=== PATIENT | male | born 1970 | race Hispanic/Latino ===

== ENCOUNTER 2016-08-15 06:22 | Emergency (ER) | payer MEDICAID ==
[2016-08-15 06:39] VITALS: TEMP 98.6; BMI 23.6
--- NOTE | 2016-08-15 07:30 | ED PDOC ---
Arrival/HPI - General Chief Complaint: Upper Extremity Problem/Injury Time Seen by Provider: 08/15/16 07:29 Historian: Patient - History of Present Illness Narrative History of Present Illness (Text): 08/15/16 07:30 A 46 year old male, who denies any past medical history, presents to the emergency department complaining of right hand pain since last night. Patient reports he was in an argument and punched a wall with his hand. Patient denies any fever, chills, nausea, vomiting, diarrhea, abdominal pain, chest pain, shortness of breath or any other complaints. PMD: None Time/Duration: Other (Last night) Symptom Course: Unchanged Quality: Other ("Pain") Context: Home Past Medical History - Provider Review Nursing Documentation Reviewed: Yes - Infectious Disease Hx of Infectious Diseases: None - Tetanus Immunization Tetanus Immunization: Unknown - Past Medical History Past Medical History: No Previous - Cardiac Hx Cardiac Disorders: No - Pulmonary Hx Respiratory Disorders: Yes Hx Asthma: Yes - Neurological Hx Neurological Disorder: No - HEENT Hx HEENT Disorder: No - Renal Hx Renal Disorder: No - Endocrine/Metabolic Hx Endocrine Disorders: No - Hematological/Oncological Hx Blood Disorders: No - Integumentary Hx Dermatological Disorder: No - Musculoskeletal/Rheumatological Hx Musculoskeletal Disorders: Yes Hx Fractures: Yes - Gastrointestinal Hx Gastrointestinal Disorders: No - Genitourinary/Gynecological Hx Genitourinary Disorders: No - Psychiatric Hx Psychophysiologic Disorder: Yes Hx Anxiety: Yes Hx Substance Use: Yes - Surgical History Hx Orthopedic Surgery: Yes (left femur) - Anesthesia Hx Anesthesia: Yes Hx Anesthesia Reactions: No Hx Malignant Hyperthermia: No - Suicidal Assessment Feels Threatened In Home Enviroment: No Family/Social History - Physician Review Nursing Documentation Reviewed: Yes Family/Social History: No Known Family HX Smoking Status: Former Smoker Hx Alcohol Use: No Hx Substance Use: Yes Substance used: Heroin Hx Substance Use Treatment: No Allergies/Home Meds Allergies/Adverse Reactions: Allergies No Known Allergies Allergy (Verified 10/13/15 21:15) Review of Systems - Physician Review All systems were reviewed & negative as marked: Yes - Review of Systems Constitutional: absent: Fevers, Night Sweats Respiratory: absent: SOB Cardiovascular: absent: Chest Pain Gastrointestinal: absent: Abdominal Pain, Diarrhea, Nausea, Vomiting Musculoskeletal: Other (Right hand pain) Physical Exam - Physical Exam Narrative Physical Exam (Text): Constitutional: No acute distress. Head: Normocephalic. Atraumatic. Eyes: PERRL. ENT: Moist mucous membranes. Neck: Supple. Cardiovascular: Regular rate. Chest: No tenderness. Respiratory: Clear to auscultation bilaterally. GI: Soft. Nontender. Nondistended. Back: No CVA tenderness. Musculoskeletal: Ecchymosis on palmar aspect of right palm. Edema to dorsal palmar aspect. Full ROM with pain. No snuff box tenderness. No swelling of extremities. Skin: No rash. Neurologic: Alert, no focal deficit. Vital Signs Reviewed: Yes Vital Signs Temp Pulse Resp BP Pulse Ox 08/15/16 06:38 98.6 F 96 H 19 125/86 97 Temperature: Afebrile Blood Pressure: Normal Pulse: Tachycardic Respiratory Rate: Normal Appearance: Positive for: Well-Appearing, Non-Toxic, Comfortable Pain Distress: None Mental Status: Positive for: Alert and Oriented X 3 Medical Decision Making ED Course and Treatment: 08/15/16 07:30 Impression: A 46 year old male with right hand pain, likely Boxer's Fracture, will confirm with XR. Plan: -- Right hand xray -- Toradol -- Reassess and disposition Progress Notes: XR shows fracture of 5th metacarpal as read by me. Ulnar gutter splint placed. Discharged home, follow up Ortho, return to ER for worsening pain, numbness, skin coldness or color change. - RAD Interpretation Radiology Orders: 08/15/16 07:32 HAND RIGHT 3 VIEWS [RAD] Stat - Medication Orders Current Medication Orders: Discontinued Medications Ketorolac Tromethamine (Toradol) 30 mg IM STAT STA Stop: 08/15/16 07:33 Last Admin: 08/15/16 07:40 Dose: 30 mg - Scribe Statement The provider has reviewed the documentation as recorded by the Samson Sharp Provider Scribe Attestation: All medical record entries made by the Scribe were at my direction and personally dictated by me. I have reviewed the chart and agree that the record accurately reflects my personal performance of the history, physical exam, medical decision making, and the department course for this patient. I have also personally directed, reviewed, and agree with the discharge instructions and disposition. Disposition/Present on Arrival - Present on Arrival Any Indicators Present on Arrival: No History of DVT/PE: No History of Uncontrolled Diabetes: No Urinary Catheter: No History of Decub. Ulcer: No History Surgical Site Infection Following: None - Disposition Have Diagnosis and Disposition been Completed?: Yes Diagnosis: Fracture, metacarpal Disposition: HOME/ ROUTINE Disposition Time: 08:49 Patient Plan: Discharge Condition: STABLE Discharge Instructions (ExitCare): Boxer Fracture (ED) Prescriptions: Ibuprofen [Motrin] 600 mg PO Q6 #25 tab Referrals: Orestes Lloyd DO [Staff Provider] - Follow up with primary
[2016-08-15 09:07] VITALS: BP 128/75; PULSE 86; RESP 17; O2SAT 98
--- NOTE | 2016-08-15 11:47 | RAD ---
PROCEDURE: Right Hand Radiographs. HISTORY: punched wall, hand pain COMPARISON: None. FINDINGS: BONES: There is a minimally angulated fracture of the neck of the 5th metacarpal JOINTS: Normal. No osteoarthritic changes. SOFT TISSUES: Normal. OTHER FINDINGS: None. IMPRESSION: There is a minimally angulated fracture of the neck of the 5th metacarpal
== END 2016-08-15 09:07 | disposition home or self-care (01) ==
LOC: ED 06:22
DX: S62.336A Displaced fracture of neck of fifth metacarpal bone, right hand, initial encounter for closed fracture (principal); W22.01XA Walked into wall, initial encounter; Y92.009 Unspecified place in unspecified non-institutional (private) residence as the place of occurrence of the external cause
CPT/HCPCS: 73130; 96372; 99284; J1885

== ENCOUNTER 2017-07-05 12:59 | Observation (INO) | payer OTHER, MEDICAID ==
[2017-07-05] MEDS: Albuterol-Ipratrop 3 mg / 0.5 (3 ml) UD IH SCH ×3 (13:20→13:48)
--- NOTE | 2017-07-05 13:26 | ED PDOC ---
Arrival/HPI - General Time Seen by Provider: 07/05/17 13:07 Historian: Patient - History of Present Illness Narrative History of Present Illness (Text): 07/05/17 13:23 47 year old male, whose past medical history includes asthma, presents to the emergency department complaining of asthma exacerbation. He reports using his nebulizer without relief. Denies chest pain. Time/Duration: Prior to Arrival Symptom Onset: Sudden Symptom Course: Unchanged Activities at Onset: Light Past Medical History - Provider Review Nursing Documentation Reviewed: Yes - Infectious Disease Hx of Infectious Diseases: None - Tetanus Immunization Tetanus Immunization: Unknown - Past Medical History Past Medical History: No Previous - Cardiac Hx Cardiac Disorders: No - Pulmonary Hx Respiratory Disorders: Yes Hx Asthma: Yes - Neurological Hx Neurological Disorder: No - HEENT Hx HEENT Disorder: No - Renal Hx Renal Disorder: No - Endocrine/Metabolic Hx Endocrine Disorders: No - Hematological/Oncological Hx Blood Disorders: No - Integumentary Hx Dermatological Disorder: No - Musculoskeletal/Rheumatological Hx Musculoskeletal Disorders: Yes Hx Fractures: Yes - Gastrointestinal Hx Gastrointestinal Disorders: No - Genitourinary/Gynecological Hx Genitourinary Disorders: No - Psychiatric Hx Psychophysiologic Disorder: Yes Hx Anxiety: Yes Hx Substance Use: Yes - Surgical History Hx Orthopedic Surgery: Yes (left femur) - Anesthesia Hx Anesthesia: Yes Hx Anesthesia Reactions: No Hx Malignant Hyperthermia: No - Suicidal Assessment Feels Threatened In Home Enviroment: No Family/Social History - Physician Review Nursing Documentation Reviewed: Yes Family/Social History: Unknown Family HX Smoking Status: Former Smoker Hx Alcohol Use: No Hx Substance Use: Yes Substance used: Heroin Hx Substance Use Treatment: No Allergies/Home Meds Allergies/Adverse Reactions: Allergies No Known Allergies Allergy (Verified 10/13/15 21:15) Review of Systems - Physician Review All systems were reviewed & negative as marked: Yes - Review of Systems Constitutional: Normal Eyes: Normal ENT: Normal Respiratory: SOB. absent: Cough Cardiovascular: Normal. absent: Chest Pain Gastrointestinal: Normal. absent: Abdominal Pain, Diarrhea, Nausea, Vomiting Genitourinary Male: Normal. absent: Dysuria, Frequency, Hematuria, Urinary Output Changes Musculoskeletal: Normal. absent: Back Pain, Neck Pain Skin: Normal. absent: Rash Neurological: Normal. absent: Headache, Dizziness Endocrine: Normal Hemo/Lymphatic: Normal Psychiatric: Normal Physical Exam Vital Signs Reviewed: Yes Vital Signs Temp Pulse Resp BP Pulse Ox 07/05/17 15:15 82 18 147/87 96 07/05/17 13:50 18 07/05/17 13:16 98.6 F 87 24 152/94 H 95 Temperature: Afebrile Blood Pressure: Hypertensive Pulse: Regular Respiratory Rate: Normal Appearance: Positive for: Well-Appearing, Non-Toxic, Comfortable Pain Distress: None Mental Status: Positive for: Alert and Oriented X 3 - Systems Exam Head: Present: Atraumatic, Normocephalic Pupils: Present: PERRL Extroacular Muscles: Present: EOMI Conjunctiva: Present: Normal Mouth: Present: Moist Mucous Membranes Neck: Present: Normal Range of Motion. No: Meningeal Signs, MIDLINE TENDERNESS , Paraspinal Tenderness Respiratory/Chest: Present: Wheezes. No: Respiratory Distress, Accessory Muscle Use Cardiovascular: Present: Regular Rate and Rhythm, Normal S1, S2. No: Murmurs Abdomen: No: Tenderness, Distention, Peritoneal Signs Back: Present: Normal Inspection. No: CVA Tenderness, Midline Tenderness, Paraspinal Tenderness Upper Extremity: Present: Normal Inspection. No: Cyanosis, Edema Lower Extremity: Present: Normal Inspection. No: Edema Neurological: Present: GCS=15, CN II-XII Intact, Speech Normal Skin: Present: Warm, Dry, Normal Color. No: Rashes Psychiatric: Present: Alert, Oriented x 3, Normal Insight, Normal Concentration Medical Decision Making ED Course and Treatment: 07/05/17 13:27 Impression: 47 year old male presents to the emergency department with wheezing Plan: -- Chest X-ray -- Duoneb -- Prednisone -- Reassess and disposition Progress Notes: 07/05/17 13:43 Chest X-ray reviewed, shows; LUNGS: No active pulmonary disease. PLEURA: No significant pleural effusion identified, no pneumothorax apparent. CARDIOVASCULAR: Normal. OSSEOUS STRUCTURES: No significant abnormalities. VISUALIZED UPPER ABDOMEN: Normal. OTHER FINDINGS: None. IMPRESSION: No active disease. 07/05/17 16:09 Patient has persistent wheezing after duonebs x 3 and solumedrol. Dyspenic with ambulation. Will transfer to med/sx observation in police custody for asthma exacerbation 07/05/17 16:10 - Lab Interpretations Lab Results: 07/05/17 15:30 07/05/17 15:30 Lab Results 07/05/17 15:30: Sodium 143, Potassium 4.2, Chloride 99, Carbon Dioxide 30, Anion Gap 18, BUN 7, Creatinine 0.7 L, Est GFR ( Amer) > 60, Est GFR (Non -Af Amer) > 60, Random Glucose 141 H, Calcium 9.5, Total Bilirubin 0.6, AST 31, ALT 31, Alkaline Phosphatase 102, Total Protein 7.9, Albumin 4.3, Globulin 3.6, Albumin/Globulin Ratio 1.2 07/05/17 15:30: WBC 14.8 H D, RBC 5.40, Hgb 15.5, Hct 45.9, MCV 85.0, MCH 28.7, MCHC 33.8, RDW 13.4, Plt Count 330, MPV 9.3, Gran % 89.8 H, Lymph % (Auto) 4.5 L , [place] % (Auto) 4.1, Eos % (Auto) 1.5, Baso % (Auto) 0.1, Gran # 13.30 H, Lymph # (Auto) 0.7 L, [place] # (Auto) 0.6, Eos # (Auto) 0.2, Baso # (Auto) 0.02, Neutrophils % (Manual) Pending, Lymphocytes % (Manual) Pending, Monocytes % ( Manual) Pending - RAD Interpretation Radiology Orders: 07/05/17 13:13 CHEST PORTABLE [RAD] Stat - Medication Orders Current Medication Orders: Discontinued Medications Albuterol/Ipratropium (Duoneb 3 Mg/0.5 Mg (3 Ml) Ud) 3 ml IH Q15M TARUN Stop: 07/05/17 13:46 Last Admin: 07/05/17 13:48 Dose: 3 ml Albuterol/Ipratropium (Duoneb 3 Mg/0.5 Mg (3 Ml) Ud) 3 ml IH STAT STA Stop: 07/05/17 15:24 Prednisone (Prednisone Tab) 60 mg PO STAT ONE Stop: 07/05/17 13:14 Last Admin: 07/05/17 13:31 Dose: 60 mg - Scribe Statement The provider has reviewed the documentation as recorded by the Scribkin Sprague All medical record entries made by the Gregoryibkin were at my direction and personally dictated by me. I have reviewed the chart and agree that the record accurately reflects my personal performance of the history, physical exam, medical decision making, and the department course for this patient. I have also personally directed, reviewed, and agree with the discharge instructions and disposition. Disposition/Present on Arrival - Present on Arrival Any Indicators Present on Arrival: No History of DVT/PE: No History of Uncontrolled Diabetes: No Urinary Catheter: No History Surgical Site Infection Following: None - Disposition Have Diagnosis and Disposition been Completed?: Yes Diagnosis: Asthma exacerbation Disposition: HOSPITALIZED Disposition Time: 16:10 Patient Plan: Observation Condition: FAIR Referrals: Jaelyn Mendez, [Primary Care Provider] - Follow up with primary
--- NOTE | 2017-07-05 13:38 | RAD ---
HISTORY: asthma, sob COMPARISON: 10/12/2014 FINDINGS: LUNGS: No active pulmonary disease. PLEURA: No significant pleural effusion identified, no pneumothorax apparent. CARDIOVASCULAR: Normal. OSSEOUS STRUCTURES: No significant abnormalities. VISUALIZED UPPER ABDOMEN: Normal. OTHER FINDINGS: None. IMPRESSION: No active disease.
[2017-07-05] MEDS ORDERED: Albuterol-Ipratrop 3 mg / 0.5 (3 ml) UD IH STA (15:23)
[2017-07-05 16:02] LABS: BASO # 0.02 K/mm3 (0.0-2.0); BASO % 0.1 % (0.0-3.0); EOS # 0.2 (0.0-0.7); EOS % 1.5 % (1.5-5.0); GRAN % 89.8 % (50.0-68.0); HEMOGLOBIN 15.5 g/dL (14.0-18.0); LYMPH # 0.7 (1.2-3.4); LYMPH % 4.5 % (22.0-35.0); MEAN CORPUSCULAR HEMOGLOBIN 28.7 pg (25.0-35.0); MEAN CORPUSCULAR HGB CONC 33.8 g/dl (31.0-37.0); MEAN PLATELET VOLUME 9.3 fl (7.0-11.0); MONO # 0.6 (0.1-0.6); MONO % 4.1 % (1.0-6.0); PLATELET COUNT 330 10^3/uL (120.0-450.0); RED CELL DISTRIBUTION WIDTH 13.4 % (11.5-14.5); WHITE BLOOD COUNT 14.8 10^3/ul (4.5-11.0)
[2017-07-05 16:06] LABS: ALB/GLOB RATIO 1.2 (1.1-1.8); ALBUMIN 4.3 g/dL (3.0-4.8); ALT/SGPT 31 U/L (7-56); AST/SGOT 31 U/L (17-59); BLOOD UREA NITROGEN 7 mg/dL (7-21); CALCIUM 9.5 mg/dL (8.4-10.5); GFR AFRICAN-AMERICAN > 60; GFR NON-AFRICAN AMERICAN > 60
[2017-07-05 16:37] LABS: BASOPHIL 1 % (0.0-1.0); LYMPHOCYTE 6 % (22.0-35.0); MONOCYTE 4 % (1.0-6.0); NEUTROPHIL 89 % (50.0-70.0)
[2017-07-05 16:38] LABS: PLATELET ESTIMATE NORMAL (NORMAL)
--- NOTE | 2017-07-05 16:55 | CP.PCM.HP ---
<HortonMarcos - Last Filed: 07/05/17 17:27> History of Present Illness - History of Present Illness History of Present Illness: 47 year old male with past medical history of asthma with previous hospitalizations but not intubated presents with asthma exacerbation. Patient states he was at home this morning when he felt short of breath and like having an asthma attack. Patient used an inhaler with some relief. Patient then came to the hospital. Patient states he uses albuterol and inhaler at home which are her mothers property. He states he has been using the inhaler 3-4 times a day and states that during the spring his asthma gets really bad. His last hospitalization for asthma was last year at [facility]. patient also admits to heroine use with last use yesterday of 6 bags. He admits to snorting and injecting. Patient states he was in rehab but left and states has previously been on methadone. Patient denies chest pain, fever, chills, nausea, vomiting, abdominal pain, or any other complains at this time. PMH: Asthma PSH: denies Allergies: none Meds: uses mothers albuterol and nebulizers Social: denies alcohol or tobacco use, admits to heroin use Family Hx: denies Present on Admission - Present on Admission Any Indicators Present on Admission: No Review of Systems - Constitutional Constitutional: absent: Chills, Fever, Night Sweats, Weight Loss - EENT Nose/Mouth/Throat: absent: Nasal Discharge - Cardiovascular Cardiovascular: absent: Chest Pain, Chest Pain with Activity, Dyspnea - Respiratory Respiratory: Cough, Dyspnea, Wheezing. absent: Pain on Inspiration, Chest Congestion - Gastrointestinal Gastrointestinal: absent: Abdominal Pain, Nausea, Vomiting - Musculoskeletal Musculoskeletal: absent: Arthralgias - Neurological Neurological: absent: Numbness, Tingling, Vertigo Past Patient History - Infectious Disease Hx of Infectious Diseases: None - Tetanus Immunizations Tetanus Immunization: Unknown - Past Medical History & Family History Past Medical History?: Yes - Past Social History Smoking Status: Former Smoker - CARDIAC Hx Cardiac Disorders: No - PULMONARY Hx Respiratory Disorders: Yes Hx Asthma: Yes - NEUROLOGICAL Hx Neurological Disorder: No - HEENT Hx HEENT Problems: No - RENAL Hx Chronic Kidney Disease: No - ENDOCRINE/METABOLIC Hx Endocrine Disorders: No - HEMATOLOGICAL/ONCOLOGICAL Hx Blood Disorders: No - INTEGUMENTARY Hx Dermatological Problems: No - MUSCULOSKELETAL/RHEUMATOLOGICAL Hx Musculoskeletal Disorders: Yes Hx Fractures: Yes - GASTROINTESTINAL Hx Gastrointestinal Disorders: No - GENITOURINARY/GYNECOLOGICAL Hx Genitourinary Disorders: No - PSYCHIATRIC Hx Psychophysiologic Disorder: Yes Hx Anxiety: Yes Hx Substance Use: Yes - SURGICAL HISTORY Hx Orthopedic Surgery: Yes (left femur) - ANESTHESIA Hx Anesthesia: Yes Hx Anesthesia Reactions: No Hx Malignant Hyperthermia: No Meds Allergies/Adverse Reactions: Allergies Allergy/AdvReac Type Severity Reaction Status Date / Time No Known Allergies Allergy Verified 10/13/15 21:15 Physical Exam - Constitutional Appears: Non-toxic, No Acute Distress - Head Exam Head Exam: ATRAUMATIC, NORMAL INSPECTION, NORMOCEPHALIC - Eye Exam Eye Exam: EOMI, Normal appearance, PERRL - ENT Exam ENT Exam: Mucous Membranes Moist - Respiratory Exam Respiratory Exam: Wheezes, NORMAL BREATHING PATTERN - Cardiovascular Exam Cardiovascular Exam: REGULAR RHYTHM, +S1, +S2 - GI/Abdominal Exam GI & Abdominal Exam: Normal Bowel Sounds, Soft - Extremities Exam Extremities exam: Positive for: pedal pulses present. Negative for: pedal edema - Neurological Exam Neurological exam: Alert, Oriented x3 Results - Vital Signs Recent Vital Signs: Last Vital Signs Temp 98.6 F 07/05/17 13:16 Pulse 82 07/05/17 15:15 Resp 18 07/05/17 15:15 BP 147/87 07/05/17 15:15 Pulse Ox 96 07/05/17 15:15 - Labs Result Diagrams: 07/05/17 15:30 07/05/17 15:30 Labs: Laboratory Results - last 24 hr 07/05/17 07/05/17 15:30 15:30 WBC 14.8 H D RBC 5.40 Hgb 15.5 Hct 45.9 MCV 85.0 MCH 28.7 MCHC 33.8 RDW 13.4 Plt Count 330 MPV 9.3 Gran % 89.8 H Lymph % (Auto) 4.5 L [place] % (Auto) 4.1 Eos % (Auto) 1.5 Baso % (Auto) 0.1 Gran # 13.30 H Lymph # (Auto) 0.7 L Bee # (Auto) 0.6 Eos # (Auto) 0.2 Baso # (Auto) 0.02 Neutrophils % (Manual) 89 H Lymphocytes % (Manual) 6 L Monocytes % (Manual) 4 Basophils % (Manual) 1 Platelet Evaluation Normal Sodium 143 Potassium 4.2 Chloride 99 Carbon Dioxide 30 Anion Gap 18 BUN 7 Creatinine 0.7 L Est GFR ( Amer) > 60 Est GFR (Non-Af Amer) > 60 Random Glucose 141 H Calcium 9.5 Total Bilirubin 0.6 AST 31 ALT 31 Alkaline Phosphatase 102 Total Protein 7.9 Albumin 4.3 Globulin 3.6 Albumin/Globulin Ratio 1.2 Assessment & Plan - Assessment and Plan (Free Text) Assessment: 47 year old male with past medical history of asthma with previous hospitalizations but not intubated presents with asthma exacerbation. Plan: 1. Asthma Exacerbation -EKG pending official read -Chest Xray: no active disease -solumedrol 125 once -solumedrol 60 Q8 -levofloxacin PO -oxygen PRN -zofran 2. Heroine Use -UDS pending -alcohol level pending -methadone 10mg TID PRN -counseled on drug use and rehab options -aspiration precautions -fall precautions Prophylaxis: GI: protonix DVT: Heparin SC <Benito Au - Last Filed: 07/06/17 18:58> Results - Vital Signs Recent Vital Signs: Last Vital Signs Temp 98.2 F 07/06/17 14:00 Pulse 80 07/06/17 14:00 Resp 20 07/06/17 14:00 BP 106/68 07/06/17 14:00 Pulse Ox 94 L 07/06/17 14:00 - Labs Result Diagrams: 07/06/17 07:00 07/05/17 15:30 Labs: Laboratory Results - last 24 hr 07/05/17 07/05/17 07/05/17 16:50 22:06 22:16 WBC RBC Hgb Hct MCV MCH MCHC RDW Plt Count MPV POC Glucose (mg/dL) 150 H Hemoglobin A1c 5.9 Urine Opiates Screen Positive H Urine Methadone Screen Negative Ur Barbiturates Screen Negative Ur Phencyclidine Scrn Negative Ur Amphetamines Screen Negative U Benzodiazepines Scrn Negative U Oth Cocaine Metabols Positive H U Cannabinoids Screen Negative 07/06/17 07/06/17 07:00 11:13 WBC 10.3 D RBC 5.17 Hgb 14.6 Hct 43.3 MCV 83.8 MCH 28.2 MCHC 33.7 RDW 13.5 Plt Count 367 MPV 9.2 POC Glucose (mg/dL) 196 H Hemoglobin A1c Urine Opiates Screen Urine Methadone Screen Ur Barbiturates Screen Ur Phencyclidine Scrn Ur Amphetamines Screen U Benzodiazepines Scrn U Oth Cocaine Metabols U Cannabinoids Screen Attending/Attestation - Attestation I have personally seen and examined this patient.: Yes I have fully participated in the care of the patient.: Yes I have reviewed all pertinent clinical information: Yes Notes (Text): 07/06/17 18:55 Attending note; Patient seen and examined with resident in ER. Patient is under police custody. Patient is a 47 year old male with past medical history of asthma with previous hospitalizations in 2015 but not intubated presents with asthma exacerbation. Currently patient has moderate wheezing. Treated with DuoNeb's and prednisone in the ER. No significant hypoxemia. Patient was given Solu-Medrol 125mg IV one dose stat. Started on DuoNeb treatment. Patient will be admitted for observation for acute asthma exacerbation. Active smoking; smoking cessation is strongly advised. Active heroin abuse; patient is started on methadone when necessary. Possible discharge if clinically table tomorrow. Patient is strongly advised to follow-up with PMD at [place].
[2017-07-05] MEDS: levoFLOXacin 750 MG TAB PO SCH (18:22)
[2017-07-05] MEDS ORDERED: Albuterol-Ipratrop 3 mg / 0.5 (3 ml) UD IH PRN (20:23)
--- NOTE | 2017-07-05 21:30 | CARD ---
APPROVED REPORT EKG Measurement Heart [id number] <Conclusion> Poor data quality, interpretation may be adversely affected Normal sinus rhythm Normal ECG
[2017-07-05] MEDS: Insulin Lispro (humaLOG) LOW Coverage SC SCH (22:17)
[2017-07-05 22:33] LABS: BARBITURATES, UR NEGATIVE (NEGATIVE); PHENCYCLIDINE, UR NEGATIVE (NEGATIVE)
[2017-07-05 22:36] LABS: BENZODIAZEPINES, UR NEGATIVE (NEGATIVE); OPIATES, UR POSITIVE (NEGATIVE)
[2017-07-05 23:27] VITALS: RESP 20; BMI 24.8
[2017-07-06] MEDS ORDERED: Pantoprazole 40 mg EC Tab PO SCH (06:00)
[2017-07-06 07:21] LABS: HEMOGLOBIN 14.6 g/dL (14.0-18.0); MEAN CELL VOLUME 83.8 fl (80.0-105.0); MEAN CORPUSCULAR HEMOGLOBIN 28.2 pg (25.0-35.0); MEAN CORPUSCULAR HGB CONC 33.7 g/dl (31.0-37.0); MEAN PLATELET VOLUME 9.2 fl (7.0-11.0); RBC 5.17 10^6/uL (3.5-6.1); RED CELL DISTRIBUTION WIDTH 13.5 % (11.5-14.5); WHITE BLOOD COUNT 10.3 10^3/ul (4.5-11.0)
[2017-07-06] MEDS: Insulin Lispro (humaLOG) LOW Coverage SC SCH ×2 (07:53→11:59)
[2017-07-06] MEDS ORDERED: Albuterol-Ipratrop 3 mg / 0.5 (3 ml) UD IH STA (08:08)
[2017-07-06] MEDS: levoFLOXacin 750 MG TAB PO SCH (09:29)
[2017-07-06] MEDS ORDERED: Enoxaparin 40 mg Syringe SC SCH (10:00)
--- NOTE | 2017-07-06 15:29 | CP.PCM.DIS ---
<Keon Bosch - Last Filed: 07/06/17 15:25> Provider - Provider Date of Admission: 07/05/17 15:18 Attending physician: Benito Au MD Primary care physician: Jaelyn Profile Required Time Spent in preparation of Discharge (in minutes): 30 Hospital Course - Lab Results Lab Results: Most Recent Lab Values WBC 10.3 10^3/ul (4.5-11.0) D 07/06/17 07:00 RBC 5.17 10^6/uL (3.5-6.1) 07/06/17 07:00 Hgb 14.6 g/dL (14.0-18.0) 07/06/17 07:00 Hct 43.3 % (42.0-52.0) 07/06/17 07:00 MCV 83.8 fl (80.0-105.0) 07/06/17 07:00 MCH 28.2 pg (25.0-35.0) 07/06/17 07:00 MCHC 33.7 g/dl (31.0-37.0) 07/06/17 07:00 RDW 13.5 % (11.5-14.5) 07/06/17 07:00 Plt Count 367 10^3/uL (120.0-450.0) 07/06/17 07:00 MPV 9.2 fl (7.0-11.0) 07/06/17 07:00 Gran % 89.8 % (50.0-68.0) H 07/05/17 15:30 Lymph % (Auto) 4.5 % (22.0-35.0) L 07/05/17 15:30 [place] % (Auto) 4.1 % (1.0-6.0) 07/05/17 15:30 Eos % (Auto) 1.5 % (1.5-5.0) 07/05/17 15:30 Baso % (Auto) 0.1 % (0.0-3.0) 07/05/17 15:30 Gran # 13.30 (1.4-6.5) H 07/05/17 15:30 Lymph # (Auto) 0.7 (1.2-3.4) L 07/05/17 15:30 [place] # (Auto) 0.6 (0.1-0.6) 07/05/17 15:30 Eos # (Auto) 0.2 (0.0-0.7) 07/05/17 15:30 Baso # (Auto) 0.02 K/mm3 (0.0-2.0) 07/05/17 15:30 Neutrophils % (Manual) 89 % (50.0-70.0) H 07/05/17 15:30 Lymphocytes % (Manual) 6 % (22.0-35.0) L 07/05/17 15:30 Monocytes % (Manual) 4 % (1.0-6.0) 07/05/17 15:30 Basophils % (Manual) 1 % (0.0-1.0) 07/05/17 15:30 Platelet Evaluation Normal (NORMAL) 07/05/17 15:30 Sodium 143 mmol/L (132-148) 07/05/17 15:30 Potassium 4.2 mmol/L (3.6-5.0) 07/05/17 15:30 Chloride 99 mmol/L (98-107) 07/05/17 15:30 Carbon Dioxide 30 mmol/L (21-33) 07/05/17 15:30 Anion Gap 18 (10-20) 07/05/17 15:30 BUN 7 mg/dL (7-21) 07/05/17 15:30 Creatinine 0.7 mg/dl (0.8-1.5) L 07/05/17 15:30 Est GFR ( Amer) > 60 07/05/17 15:30 Est GFR (Non-Af Amer) > 60 07/05/17 15:30 POC Glucose (mg/dL) 196 mg/dL (65-110) H 07/06/17 11:13 Random Glucose 141 mg/dL (70-110) H 07/05/17 15:30 Hemoglobin A1c 5.9 % (4.2-6.5) 07/05/17 16:50 Calcium 9.5 mg/dL (8.4-10.5) 07/05/17 15:30 Total Bilirubin 0.6 mg/dL (0.2-1.3) 07/05/17 15:30 AST 31 U/L (17-59) 07/05/17 15:30 ALT 31 U/L (7-56) 07/05/17 15:30 Alkaline Phosphatase 102 U/L (38-126) 07/05/17 15:30 Total Protein 7.9 g/dL (5.8-8.3) 07/05/17 15:30 Albumin 4.3 g/dL (3.0-4.8) 07/05/17 15:30 Globulin 3.6 gm/dL 07/05/17 15:30 Albumin/Globulin Ratio 1.2 (1.1-1.8) 07/05/17 15:30 Urine Opiates Screen Positive (NEGATIVE) H 07/05/17 22:06 Urine Methadone Screen Negative (NEGATIVE) 07/05/17 22:06 Ur Barbiturates Screen Negative (NEGATIVE) 07/05/17 22:06 Ur Phencyclidine Scrn Negative (NEGATIVE) 07/05/17 22:06 Ur Amphetamines Screen Negative (NEGATIVE) 07/05/17 22:06 U Benzodiazepines Scrn Negative (NEGATIVE) 07/05/17 22:06 U Oth Cocaine Metabols Positive (NEGATIVE) H 07/05/17 22:06 U Cannabinoids Screen Negative (NEGATIVE) 07/05/17 22:06 Alcohol, Quantitative < 10 mg/dL (0-10) 07/05/17 16:50 - Hospital Course Hospital Course: As per admission documentation 47 year old male with past medical history of asthma with previous hospitalizations but not intubated presents with asthma exacerbation. Patient states he was at home this morning when he felt short of breath and like having an asthma attack. Patient used an inhaler with some relief. Patient then came to the hospital. Patient states he uses albuterol and inhaler at home which are her mothers property. He states he has been using the inhaler 3-4 times a day and states that during the spring his asthma gets really bad. His last hospitalization for asthma was last year at [facility]. patient also admits to heroine use with last use yesterday of 6 bags. He admits to snorting and injecting. Patient states he was in rehab but left and states has previously been on methadone. Patient denies chest pain, fever, chills, nausea, vomiting, abdominal pain, or any other complains at this time. Hospital Course Patient is a 47 year old male admitted for acute exacerbation of asthma. Patient was treated with solumedrol, levofloxacin and duoneb treatments. CXR showed no active disease. Patient's symptoms improved overnight and he was stable throughout his stay. The patient was discharged into the custody of the police. Patient was discharged with the following instructions. Discharge Instructions Patient is to be discharged into Police Custody. Patient is to continue taking medications as directed. - Levofloxacin 500mg PO daily for 5 days - Medrol Dose Pack - see taper - Duoneb 3mL INH Q4H prn for wheezing/shortness of breath If any new or worsening symptoms, please go to the nearest emergency facility. This is just a brief summary of the patient's hospital course. For full detail, please see EMR. Discharge Exam - Head Exam Head Exam: ATRAUMATIC, NORMAL INSPECTION, NORMOCEPHALIC - Eye Exam Eye Exam: Normal appearance - ENT Exam ENT Exam: Mucous Membranes Moist - Respiratory Exam Respiratory Exam: Wheezes (improved, mild wheezing in bases b/l), NORMAL BREATHING PATTERN. absent: Accessory Muscle Use, Chest Wall Tenderness, Decreased Breath Sounds, Prolonged Expiratory Phase, Rales, Rhonchi, Respiratory Distress - Cardiovascular Exam Cardiovascular Exam: REGULAR RHYTHM, +S1, +S2 - GI/Abdominal Exam GI & Abdominal Exam: Soft, Unremarkable. absent: Distended, Firm, Guarding, Rigid, Tenderness - Extremities Exam Extremities exam: normal inspection, pedal pulses present - Neurological Exam Neurological exam: Alert, CN II-XII Intact, Oriented x3 - Psychiatric Exam Psychiatric exam: Normal Affect, Normal Mood - Skin Skin Exam: Dry, Warm Discharge Plan - Discharge Medications Prescriptions: Albuterol HFA [Ventolin HFA 90 mcg/actuation (8 g)] 2 puff IH Q4H PRN #1 inhaler PRN Reason: Shortness Of Breath/Wheezing Levofloxacin [Levaquin] 500 mg PO DAILY #5 tablet Methylprednisolone [Medrol Dose Pack (21 tabs)] See Taper PO DAILY #21 mg - Follow Up Plan Condition: FAIR Disposition: RELEASED IN POLICE CUSTODY Instructions: Asthma in Adults, Asthma (DC), Asthma (GEN) Additional Instructions: Patient is to be discharged into Police Custody. Patient is to continue taking medications as directed. - Levofloxacin 500mg PO daily for 5 days - Medrol Dose Pack - see taper - Duoneb 3mL INH Q4H prn for wheezing/shortness of breath If any new or worsening symptoms, please go to the nearest emergency facility. Referrals: [facility], [Primary Care Provider] - <Benito Au - Last Filed: 07/06/17 19:00> Provider - Provider Date of Admission: 07/05/17 15:18 Attending physician: Benito Au MD Primary care physician: Jaelyn Mcnair Required Hospital Course - Lab Results Lab Results: Most Recent Lab Values WBC 10.3 10^3/ul (4.5-11.0) D 07/06/17 07:00 RBC 5.17 10^6/uL (3.5-6.1) 07/06/17 07:00 Hgb 14.6 g/dL (14.0-18.0) 07/06/17 07:00 Hct 43.3 % (42.0-52.0) 07/06/17 07:00 MCV 83.8 fl (80.0-105.0) 07/06/17 07:00 MCH 28.2 pg (25.0-35.0) 07/06/17 07:00 MCHC 33.7 g/dl (31.0-37.0) 07/06/17 07:00 RDW 13.5 % (11.5-14.5) 07/06/17 07:00 Plt Count 367 10^3/uL (120.0-450.0) 07/06/17 07:00 MPV 9.2 fl (7.0-11.0) 07/06/17 07:00 Gran % 89.8 % (50.0-68.0) H 07/05/17 15:30 Lymph % (Auto) 4.5 % (22.0-35.0) L 07/05/17 15:30 [place] % (Auto) 4.1 % (1.0-6.0) 07/05/17 15:30 Eos % (Auto) 1.5 % (1.5-5.0) 07/05/17 15:30 Baso % (Auto) 0.1 % (0.0-3.0) 07/05/17 15:30 Gran # 13.30 (1.4-6.5) H 07/05/17 15:30 Lymph # (Auto) 0.7 (1.2-3.4) L 07/05/17 15:30 [place] # (Auto) 0.6 (0.1-0.6) 07/05/17 15:30 Eos # (Auto) 0.2 (0.0-0.7) 07/05/17 15:30 Baso # (Auto) 0.02 K/mm3 (0.0-2.0) 07/05/17 15:30 Neutrophils % (Manual) 89 % (50.0-70.0) H 07/05/17 15:30 Lymphocytes % (Manual) 6 % (22.0-35.0) L 07/05/17 15:30 Monocytes % (Manual) 4 % (1.0-6.0) 07/05/17 15:30 Basophils % (Manual) 1 % (0.0-1.0) 07/05/17 15:30 Platelet Evaluation Normal (NORMAL) 07/05/17 15:30 Sodium 143 mmol/L (132-148) 07/05/17 15:30 Potassium 4.2 mmol/L (3.6-5.0) 07/05/17 15:30 Chloride 99 mmol/L (98-107) 07/05/17 15:30 Carbon Dioxide 30 mmol/L (21-33) 07/05/17 15:30 Anion Gap 18 (10-20) 07/05/17 15:30 BUN 7 mg/dL (7-21) 07/05/17 15:30 Creatinine 0.7 mg/dl (0.8-1.5) L 07/05/17 15:30 Est GFR ( Amer) > 60 07/05/17 15:30 Est GFR (Non-Af Amer) > 60 07/05/17 15:30 POC Glucose (mg/dL) 196 mg/dL (65-110) H 07/06/17 11:13 Random Glucose 141 mg/dL (70-110) H 07/05/17 15:30 Hemoglobin A1c 5.9 % (4.2-6.5) 07/05/17 16:50 Calcium 9.5 mg/dL (8.4-10.5) 07/05/17 15:30 Total Bilirubin 0.6 mg/dL (0.2-1.3) 07/05/17 15:30 AST 31 U/L (17-59) 07/05/17 15:30 ALT 31 U/L (7-56) 07/05/17 15:30 Alkaline Phosphatase 102 U/L (38-126) 07/05/17 15:30 Total Protein 7.9 g/dL (5.8-8.3) 07/05/17 15:30 Albumin 4.3 g/dL (3.0-4.8) 07/05/17 15:30 Globulin 3.6 gm/dL 07/05/17 15:30 Albumin/Globulin Ratio 1.2 (1.1-1.8) 07/05/17 15:30 Urine Opiates Screen Positive (NEGATIVE) H 07/05/17 22:06 Urine Methadone Screen Negative (NEGATIVE) 07/05/17 22:06 Ur Barbiturates Screen Negative (NEGATIVE) 07/05/17 22:06 Ur Phencyclidine Scrn Negative (NEGATIVE) 07/05/17 22:06 Ur Amphetamines Screen Negative (NEGATIVE) 07/05/17 22:06 U Benzodiazepines Scrn Negative (NEGATIVE) 07/05/17 22:06 U Oth Cocaine Metabols Positive (NEGATIVE) H 07/05/17 22:06 U Cannabinoids Screen Negative (NEGATIVE) 07/05/17 22:06 Alcohol, Quantitative < 10 mg/dL (0-10) 07/05/17 16:50 Attending/Attestation - Attestation I have personally seen and examined this patient.: Yes I have fully participated in the care of the patient.: Yes I have reviewed all pertinent clinical information, including history, physical exam and plan: Yes Notes (Text): 07/06/17 18:59 Attending note; Patient seen and examined with resident. Patient is under police custody. Patient is a 47 year old male with past medical history of asthma with previous hospitalizations in 2015 but not intubated presents with asthma exacerbation. Treated with DuoNeb, IV Solu-Medrol and levofloxacin. Chest x-rays negative. Patient clinically improved. Only mild wheezing noted. No hypoxia or tachycardia. Active smoking; smoking cessation is strongly advised. Active heroin abuse; patient is started on methadone when necessary. Patient will be discharged under his custody. Patient is strongly advised to follow-up with PMD at [place].
[2017-07-06 15:38] VITALS: BP 106/68; PULSE 80; TEMP 98.2; O2SAT 94
== END 2017-07-06 15:20 ==
LOC: ED 12:59 → 5RSO 15:18 → ERH 16:23 → 5RSO 22:40
PROVIDERS: ADMIT Internal Medicine; ATTEND Internal Medicine
DX: J45.901 Unspecified asthma with (acute) exacerbation (principal); F11.10 Opioid abuse, uncomplicated; F17.200 Nicotine dependence, unspecified, uncomplicated
CPT/HCPCS: 36415; 71045; 80053; 80320; 80324; 80345; 80346; 80349; 80353; 80358; 80361; 82948; 83036; 83992; 85025; 85027; 93005; 94640; 96372; 96374; 96376; 99285; G0378; J1644; J1650; J2930